=== PATIENT | female | born 1985 | race Caucasian/White ===

== ENCOUNTER 2020-08-24 18:59 | Emergency (ER) | payer BC ==
[~2020-08-24] VITALS: Ht 147.3 cm; Wt 48.6 kg
[2020-08-24 19:24] VITALS: Ht 147.3 cm; Wt 48.6 kg
[2020-08-24 20:43] LABS: BASOPHIL % 0.5 % (0.2-1.3); PLATELET COUNT 257 x10^3mcL (179-408); RED CELL DISTRIBUTION WIDTH 15.3 % (12.3-17.7)
[2020-08-24 20:52] LABS: CALCIUM 8.6 mg/dL (8.5-10.1); CARBON DIOXIDE 25.2 mmol/L (21-32); CHLORIDE SERUM 101 mmol/L (98-107); CREATININE SERUM 0.6 mg/dL (0.6-1.0); GFR1 > 60 mL/min; GLUCOSE SERUM 94 mg/dL (74-106); POTASSIUM SERUM 3.5 mmol/L (3.5-5.1); SODIUM SERUM 137 mmol/L (136-145)
[2020-08-24 20:55] LABS: ALBUMIN 4.1 g/dL (3.4-5.0); ALKALINE PHOSPHATASE 55 U/L (46-116); ALT/SGPT 24 U/L (14-59); AST/SGOT 21 U/L (15-37); BILIRUBIN TOTAL 0.4 mg/dL (0.20-1.00); LIPASE 149 IU/L (73-393); TOTAL PROTEIN, SERUM 7.6 g/dL (6.4-8.2)
[2020-08-24 23:29] VITALS: BP 131/82
== END 2020-08-24 23:29 | disposition home or self-care (01) ==
LOC: ED 18:59
PROVIDERS: Emergency Medicine
DX: R10.13 Epigastric pain (principal)